=== PATIENT | male | born 1990 | race American Indian/Alaskan Native ===

== ENCOUNTER 2020-04-11 21:53 | Emergency (ER) | payer SELFPAY ==
--- NOTE | 2020-04-11 22:19 | Emergency Department Report ---
<JA REDDY - Last Filed: 04/13/20 20:41> ED Psych HPI - General Stated Complaint: SUICIDAL ATTEMPT/LACERATION LEFT WRIST Time Seen by Provider: 04/11/20 22:03 - Related Data Previous Rx's Medication Instructions Recorded Last Taken Type ARIPiprazole [Abilify TAB] 15 mg PO QDAY #30 tablet 04/16/[address] [Tanmay Dr] 250 mg PO BID #60 tablet 04/16/20 Unknown Rx Docusate Sodium [Colace] 100 mg PO BID PRN #20 capsule 04/16/20 Unknown Rx traZODone [Desyrel] 50 mg PO QHS #30 tablet 04/16/20 Unknown Rx Allergies Allergy/AdvReac Type Severity Reaction Status Date / Time No Known Allergies Allergy Verified 04/15/20 11:23 ED Past Medical Hx - Medications Home Medications: Home Medications Medication Instructions Recorded Confirmed Last Taken Type ARIPiprazole [Abilify TAB] 15 mg PO QDAY #30 tablet 04/16/[address] [Depakote Dr] 250 mg PO BID #60 tablet 04/16/20 Unknown Rx Docusate Sodium [Colace] 100 mg PO BID PRN #20 capsule 04/16/20 Unknown Rx traZODone [Desyrel] 50 mg PO QHS #30 tablet 04/16/20 Unknown Rx ED Course - Reevaluation(s) Reevaluation #1: 04/12/20 20:40 Chart is reviewed and appreciated, as are laboratory studies. Sodium of 133 is reviewed and appreciated, patient is a young gentleman without significant medical comorbidities, and he has unremarkable vital signs at this time. In addition, please note that laboratory studies do have some margin of error, and in addition, human physiology will typically allow for variation in electrolytes. Patients sodium of 133 does not represent a medical contraindication to psychiatric admission, evaluation, consultation and placement. An emergent redraw a basic metabolic panel to assess for this incidental and asymptomatic laboratory abnormality is not medically indicated/necessary at this time. ED Medical Decision Making - Lab Data Result diagrams: 04/11/20 22:26 04/12/20 05:28 ED Disposition Clinical Impression: Suicide attempt, Laceration of left wrist, Acute hypokalemia, Constipation, Acute psychosis Disposition: DC-01 TO HOME OR SELFCARE Is pt being admited?: No Does the pt Need Aspirin: No Condition: Stable Additional Instructions: Outpatient COMM[facility] Behavioral Health Resources: [facility] ([facility]) [address] [place] [address] / [phone] Sunday thru Sunday - 8am - 5pm [facility] Address: [address] [place] [address] Sunday thru Sunday- 7am-2pm [facility] Address: [address] [place] [address] Sunday thru Sunday: 8:30AM-5PM CRISIS RESOURCES [place] Crisis Line: Suicide Prevention Line: Crisis Text Line: Text START to [phone] Emergency: 911 Prescriptions: traZODone [Desyrel] 50 mg PO QHS #30 tablet ARIPiprazole [Abilify TAB] 15 mg PO QDAY #30 tablet Docusate Sodium [Colace] 100 mg PO BID PRN #20 capsule PRN Reason: Constipation Divalproex Dr [Depakote Dr] 250 mg PO BID #60 tablet Referrals: PRIMARY CARE, [Primary Care Provider] - 3-5 Days <KRISTY HARRISON - Last Filed: 04/14/20 11:36> ED Course - Reevaluation(s) Reevaluation #2: 04/14/20 11:36 I was asked by nurse to reassess patient's left wrist due to swelling. Patient cut his left wrist with a box order person on the and had a subsequently repaired in the ED. He says since the it has been swollen. It was wrapped with gauze and a wound dressing. Patient reports that since nurse removed gauze swelling has improved. He complains of pain to the wrist. Patient has full range of motion of fingers although he has pain with full extension of fingers. He has limited flexion extension of wrist secondary to pain. Generalized swelling to wrist and hand noted. Patient does have some mild bleeding from the radial side of the wound. Patient does not have any local warmth, erythema, or purulent drainage. Patient will be empirically covered with [facility] ED Medical Decision Making - Lab Data Result diagrams: 04/11/20 22:26 04/12/20 05:28 <HOLLY PAREDES - Last Filed: 04/16/20 12:32> ED Course - Reevaluation(s) Reevaluation #3: 04/16/20 12:32 Patient Name: JOAQUIN CHRISTIANSON Date of : 86 Patient Status: Emergency Emergency Provider: SKYLA DAVILA Date: 04/16/20 07:39 Initialization Date: 04/16/20 07:39 Subjective - Reason for Consult Consult date: 04/16/20 Reason for consult: MHE Requesting physician: SKYLA DAVILA - Chief Complaint Chief complaint: Psych Progress: Patient seen this a.m. report that he is doing pretty good, report decreased anxiety levels, reported he still hearing voices but is decreased in background chatter and also denies any suicidal thoughts or homicidal thoughts. Patient reported he has never been on any medication until now endorse prior history of psychedelic substance use, says he no longer want to use them anymore because he thinks they are affecting his brain and like to maintain the current medication that we have him on currently with follow-up outpatient REVIEW OF SYSTEMS Constitutional: Negative for weight loss ENT: Negative for stridor Respiratory: Negative for cough or hemoptysis All other systems reviewed and are negative MENTAL STATUS EXAMINATION General Appearance and Behavior: Age appropriate, wearing appropriate clothes, staring, calm and cooperative Mood: "okay" Affect and affective range: congruent with mood Thought Process: responding to internal stimuli Thought Content: Hallucinations Speech: Normal volume, Regular rate and rhythm Suicidal Ideation: Denies Homicidal Ideation: Denies Hallucinations: Yes Delusions: None elicited Impulse Control: normal Insight and Judgment: Limited Memory/Cognition: Normal Attention: Normal Orientation: Alert, oriented Assessment Schizoaffective Disorder Treatment Plan MEDICATIONS: Risks, benefits and alternatives of medications discussed with the patient, questions answered and consent obtained from patient. PSYCHOTHERAPY: Supportive psychotherapy provided MEDICAL: Per primary team DELIRIUM PRECAUTIONS: Please re-orient patient frequently, keep lights on during the day, and minimize benzodiazepines and opiates as these medications could wo rsen patient's confusion. SPINNER FRAME: DISPOSITION: Do Not Recommend acute inpatient psychiatric hospitalization at this time LEGAL STATUS: 1013 rescinded FOLLOW-UP: Will sign off Thank you for the consult. Please contact with any questions and/or concerns. Reevaluation #4: 04/16/20 12:32 Patient states he is feeling much improved. He is never been on medications for schizophrenia and appears to have been stabilized. Patient to be discharged. Patient had his 1013 rescinded by mental health colleagues. ED Medical Decision Making - Lab Data Result diagrams: 04/11/20 22:26 04/12/20 05:28 ED Disposition Is pt being admited?: No Does the pt Need Aspirin: No Time of Disposition: 12:34 <SKYLA DAVILA - Last Filed: 04/17/20 08:16> ED Psych HPI - General Source: patient, EMS - History of Present Illness Initial Comments: Mr. Christianson is a 29 years old male with no significant past medical or psychiatric history. Patient brought to the emergency room via EMS from his workplace after his coworker called and stated that he try to kill himself. Patient works in a liquor store. Patient went to the bathroom and cut his left wrist open with a deep laceration. Patient stated that he is hearing voices telling him that he has a low self-esteem and he is a bad person and he need to kill himself. Complaint: suicidal ideation, feels depressed Associated Psychiatric Symptoms: depression, suicidal ideation, auditory hallucinations Quality: constant If Self Harm: admits thoughts of, has plan, has acted on plan, self-inflicted trauma ED Review of Systems ROS: Stated complaint: SUICIDAL ATTEMPT/LACERATION LEFT WRIST Other details as noted in HPI Comment: All other systems reviewed and negative Constitutional: denies: chills, fever Respiratory: denies: cough, shortness of breath, SOB with exertion Cardiovascular: denies: chest pain Gastrointestinal: denies: abdominal pain, nausea, vomiting Musculoskeletal: denies: back pain Neurological: denies: headache, weakness ED Physical Exam - General General appearance: alert, other (depressed) - Head Head exam: Present: atraumatic, normocephalic, normal inspection - Eye Eye exam: Present: normal appearance - ENT ENT exam: Present: normal exam, normal orophraynx, mucous membranes moist - Neck Neck exam: Present: normal inspection, full ROM. Absent: tenderness, menin gismus - Respiratory Respiratory exam: Present: normal lung sounds bilaterally - Cardiovascular Cardiovascular Exam: Present: regular rate, normal rhythm, normal heart sounds - GI/Abdominal GI/Abdominal exam: Present: soft, normal bowel sounds. Absent: distended, tenderness, guarding, rebound, rigid, organomegaly, mass, bruit, pulsatile mass, hernia - Extremities Exam Extremities exam: Present: full ROM, normal capillary refill. Absent: t enderness, pedal edema, joint swelling, calf tenderness - Back Exam Back exam: Present: normal inspection, full ROM. Absent: CVA tenderness (R), CVA tenderness (L) - Neurological Exam Neurological exam: Present: alert, oriented X3, CN II-XII intact - Psychiatric Psychiatric exam: Present: depressed, suicidal ideation. Absent: homicidal ideation - Skin Skin exam: Present: warm, dry, other (Laceration to the left wrist.) ED Course Vital Signs 04/11/20 04/12/20 04/12/20 22:44 02:22 08:22 Temperature 98.2 F 98.2 F 97.8 F Pulse Rate 81 91 H 124 H Respiratory 19 18 17 Rate Blood Pressure Blood Pressure 165/96 156/85 112/77 [Left] O2 Sat by Pulse 100 100 98 Oximetry 04/12/20 04/12/20 04/13/20 17:56 19:56 02:35 Temperature 97.9 F 98.7 F 97.7 F Pulse Rate 75 79 72 Respiratory 16 16 16 Rate Blood Pressure 136/88 124/79 Blood Pressure 136/84 [Left] O2 Sat by Pulse 100 99 100 Oximetry 04/13/20 04/13/20 04/13/20 08:29 08:32 20:00 Temperature 98.1 F 98.8 F Pulse Rate 72 84 Respiratory 16 16 17 Rate Blood Pressure Blood Pressure 133/91 128/75 [Left] O2 Sat by Pulse 100 100 97 Oximetry 04/14/20 04/14/20 04/15/20 19:19 20:00 07:35 Temperature 98.5 F Pulse Rate 77 Respiratory 18 18 18 Rate Blood Pressure 144/85 Blood Pressure [Left] O2 Sat by Pulse 100 100 100 Oximetry 04/15/20 04/15/20 04/15/20 08:54 19:10 20:02 Temperature 97.9 F 98.6 F Pulse Rate 86 89 Respiratory 18 18 18 Rate Blood Pressure Blood Pressure 144/90 154/94 [Left] O2 Sat by Pulse 100 99 100 Oximetry 04/16/20 04/16/20 01:51 08:22 Temperature 97.6 F 97.9 F Pulse Rate 65 75 Respiratory 16 20 Rate Blood Pressure Blood Pressure 124/73 141/89 [Left] O2 Sat by Pulse 98 100 Oximetry - Laceration /Wound Repair Left Wrist Wound Location: upper extremity Wound Explored: no foreign body removed Irrigated w/ Saline (ccs): 50 Betadine Prep?: Yes Anesthesia: 1% Lidocaine Suture Size/Type: 4:0, 3:0 Deep Layer Suture Size/Type: 4:0, gut Sterile Dressing Applied?: Yes ED Medical Decision Making - Lab Data Result diagrams: 04/11/20 22:26 04/12/20 05:28 Critical care attestation.: If time is entered above; I have spent that time in minutes in the direct care of this critically ill patient, excluding procedure time.
[2020-04-11 22:35] LABS: Bilirubin,Urine NEG (Negative); Blood,Urine SM (Negative); Color,Urine Amber (Yellow); Hyaline Casts,Urine 1 /LPF; Mucus,Urine FEW /HPF; Protein,Urine <15 mg/dL mg/dL (Negative)
[2020-04-11] MEDS ORDERED: LIDOCAINE (2%) 20 MG/1 ML VIAL 20 ML MDV INFILTRATI ONE (22:35)
[2020-04-11] MEDS ORDERED: SODIUM CHLORIDE IRRI 500 ML 500 ML IR ONE (22:35)
[2020-04-11 22:41] LABS: Amphetamine Screen,Urine PRESUMPTIVE NEGATIVE; Benzodiazepines Screen,Urine PRESUMPTIVE NEGATIVE; Cannabinoid Screen,Urine PRESUMPTIVE NEGATIVE; Cocaine Screen,Urine PRESUMPTIVE NEGATIVE; Methadone Screen,Urine PRESUMPTIVE NEGATIVE; Opiate Screen,Urine PRESUMPTIVE NEGATIVE
[2020-04-11 22:45] LABS: Basophils # (Auto) 0.1 K/mm3 (0.0-0.1); Hematocrit 41.5 % (35.5-45.6); Hemoglobin 14.2 gm/dl (11.8-15.2); Lymphocytes # (Auto) 1.6 K/mm3 (1.2-5.4); Lymphocytes % (Auto) 18.4 % (13.4-35.0); Mean Corpuscular HGB Conc 34 % (32-34); Mean Corpuscular Volume 97 fl (84-94); Monocytes # (Auto) 0.9 K/mm3 (0.0-0.8); Monocytes % (Auto) 10.3 % (0.0-7.3); Platelet Count 192 K/mm3 (140-440); Red Blood Count 4.29 M/mm3 (3.65-5.03); Red Cell Distribution Width 13.4 % (13.2-15.2)
[2020-04-11 23:00] LABS: BUN/Creatinine Ratio 9
[2020-04-11 23:03] LABS: Alanine Aminotransferase 22 units/L (7-56); Albumin 4.9 g/dL (3.9-5)
[2020-04-11 23:19] LABS: Bilirubin,Direct < 0.2 mg/dL (0-0.2)
[2020-04-11 23:25] LABS: Blood Urea Nitrogen 8 mg/dL (9-20); Calcium 9.3 mg/dL (8.4-10.2); Hemolysis Index 12
[2020-04-11] MEDS ORDERED: SODIUM CHLORIDE 0.9% 1000 ML 1,000 ML IV ONE (23:46)
[2020-04-11] MEDS ORDERED: POTASSIUM CHLORIDE ER 20 MEQ TAB PO ONE (23:54)
[2020-04-11] MEDS: POTASSIUM CHLORIDE 10 MEQ 10 MEQ/100 ML BAG IV SCH (23:57)
[2020-04-12] MEDS ORDERED: SODIUM CHLORIDE 0.9% IRR 500 ML BOTTLE IR ONE (00:11)
[2020-04-12] MEDS ORDERED: LIDOCAINE (2%) 20 MG/1 ML VIAL 20 ML MDV INFILTRATI ONE (00:11)
[2020-04-12] MEDS: POTASSIUM CHLORIDE 10 MEQ 10 MEQ/100 ML BAG IV SCH (01:02)
[2020-04-12] MEDS ORDERED: LORazepam 1 MG TAB PO ONE (01:16)
[2020-04-12] MEDS ORDERED: TETANUS,DIPHTHERIA TOXOID ADULT 0.5 ML INJ IM ONE (05:52)
[2020-04-12] MEDS ORDERED: DIPHtheria,PERTUSSIS(ACELL),TETANUS VACCINE/PF 0.5 ML VIAL IM ONE (06:00)
[2020-04-12] MEDS ORDERED: diphenhydrAMINE 25 MG CAP PO PRN (20:14)
--- NOTE | 2020-04-13 10:01 | Consultation ---
History of Present Illness - Reason for Consult Consult date: 04/13/20 Reason for consult: suicidal attempt - History of Present Psychiatric Illness Bk Snider is a 29y/o male patient who was brought to the ER after a coworker found him in the bathroom after cutting his wrist. During my interview with the patient, he is lying in bed. He is awake. He is oriented x 3. The patient appears to be responding to internal stimuli. He is staring intensely. He is speaking in a low tone. The patient says "the voices told me to cut myself." He raises his left wrist up to show me. He then says "I hear them in the distance but I don't know what they are saying right now." When asked about feelings of self harm at present, the patient says "I don't know." He denies any psych diagnoses but states he had a suicide attempt in the past by placing a plastic bag over his head. He also denies any illicit drug use recently, but says he's done "ecstasy awhile ago." The patient describes his mood as "detached." PAST PSYCHIATRIC HISTORY Diagnoses: Denies Suicide attempts or Self-harm behavior: once Prior psychiatric hospitalizations: Denies Substance Abuse history: Denies Previous psychiatric medications tried: Denies Outpatient treatment: Denies PAST MEDICAL HISTORY: None reported Family Psychiatric History: None reported or documented SOCIAL HISTORY Marital Status: Single Living Arrangements: "with someone" Employment Status: Employed Access to guns/weapons: Denies Education: Some college History of Abuse: Denies Legal History: Denies EVIEW OF SYSTEMS Constitutional: Negative for weight loss ENT: Negative for stridor Respiratory: Negative for cough or hemoptysis All other systems reviewed and are negative MENTAL STATUS EXAMINATION General Appearance and Behavior: Age appropriate, wearing appropriate clothes, staring, calm and cooperative Mood: "detached" Affect and affective range: congruent with mood Thought Process: responding to internal stimuli Thought Content: Hallucinations Speech: Normal volume, Regular rate and rhythm Suicidal Ideation: Denies Homicidal Ideation: Denies Hallucinations: Yes Delusions: None elicited Impulse Control: normal Insight and Judgment: Limited Memory/Cognition: Normal Attention: Normal Orientation: Alert, oriented Assessment Schizoaffective Disorder Plan Start Abilify 5mg po daily Start Depakote DR 125mg po BID Start Trazodone 50mg po qhs Sitter: Defer to primary Medical: Per primary Disposition: Recommend acute inpatient treatment Will follow. Thank you for this consult. Medications and Allergies Allergies Allergy/AdvReac Type Severity Reaction Status Date / Time No Known Allergies Allergy Verified 04/11/20 22:36 Active Meds: Active Medications Diphenhydramine HCl (Benadryl) 50 mg PO QHS PRN PRN Reason: Insomnia Last Admin: 04/12/20 21:52 Dose: 50 mg Documented by: Mental Status Exam - Vital signs Last Vital Signs Temp 98.1 F 04/13/20 08:29 Pulse 72 04/13/20 08:29 Resp 16 04/13/20 08:32 BP 133/91 04/13/20 08:29 Pulse Ox 100 04/13/20 08:32 Results Result Diagrams: 04/11/20 22:26 04/12/20 05:28 All other labs normal.
[2020-04-13] MEDS: ARIPiprazole 5 MG TAB PO SCH (11:30)
[2020-04-13] MEDS: DIVALPROEX DR 125 MG TAB PO SCH ×2 (11:30→22:24)
[2020-04-13] MEDS: traZODone 50 MG TAB PO SCH (22:24)
[2020-04-14] MEDS: DIVALPROEX DR 125 MG TAB PO SCH (10:23)
[2020-04-14] MEDS: ARIPiprazole 5 MG TAB PO SCH (10:23)
--- NOTE | 2020-04-14 12:16 | Progress Note ---
Subjective - Reason for Consult Consult date: 04/14/20 Reason for consult: suicide attempt - Chief Complaint Chief complaint: During my interview with the patient today, he is a/o x 3. The patient says he feels "alright today." He is responding to internal stimuli. He verbalizes "hearing chatter in the distance." When asking the patient about suicidal thoughts, he says "not suicidal, but mostly feeling like I have dunn.' He then says, "pro creative dunn." REVIEW OF SYSTEMS Constitutional: Negative for weight loss ENT: Negative for stridor Respiratory: Negative for cough or hemoptysis All other systems reviewed and are negative MENTAL STATUS EXAMINATION General Appearance and Behavior: Age appropriate, wearing appropriate clothes, staring, calm and cooperative Mood: "alright" Affect and affective range: congruent with mood Thought Process: responding to internal stimuli Thought Content: Hallucinations Speech: Normal volume, Regular rate and rhythm Suicidal Ideation: Denies Homicidal Ideation: Denies Hallucinations: Yes Delusions: None elicited Impulse Control: normal Insight and Judgment: Limited Memory/Cognition: Normal Attention: Normal Orientation: Alert, oriented Assessment Schizoaffective Disorder Plan Increase Abilify 10mg po daily Increase Depakote DR 250mg po BID Sitter: Defer to primary Medical: Per primary Disposition: Recommend acute inpatient treatment Will follow. Thank you for this consult. Mental Status Exam - Vital signs Last Vital Signs Temp 98.8 F 04/13/20 20:00 Pulse 84 04/13/20 20:00 Resp 17 04/13/20 20:00 BP 128/75 04/13/20 20:00 Pulse Ox 97 04/13/20 20:00
[2020-04-14] MEDS: cephALEXin 500 MG CAP PO SCH ×3 (14:15→22:34)
[2020-04-14] MEDS: traZODone 50 MG TAB PO SCH (22:34)
[2020-04-14] MEDS: DIVALPROEX DR 250 MG TAB PO SCH (22:35)
[2020-04-15] MEDS: DIVALPROEX DR 250 MG TAB PO SCH ×2 (09:33→23:46)
[2020-04-15] MEDS: cephALEXin 500 MG CAP PO SCH ×4 (09:34→23:46)
[2020-04-15] MEDS ORDERED: ARIPiprazole 10 MG TAB PO SCH (10:00)
--- NOTE | 2020-04-15 10:08 | Progress Note ---
Subjective - Reason for Consult Consult date: 04/15/20 Reason for consult: suicidal attempts - Chief Complaint Chief complaint: During my interview with the patient today, he is a/o x 3. The patient says he feels "okay." He is staring intensely. He initially denies hallucinations, but then states, "it's not voices but high pitch ringing." When asked about SI/HI, the patient stares at me and says, "no, it's just pro-creative power." When asking the patient what he meant by that, he said "I'm not sure. That's what I was told it was." REVIEW OF SYSTEMS Constitutional: Negative for weight loss ENT: Negative for stridor Respiratory: Negative for cough or hemoptysis All other systems reviewed and are negative MENTAL STATUS EXAMINATION General Appearance and Behavior: Age appropriate, wearing appropriate clothes, staring, calm and cooperative Mood: "okay" Affect and affective range: congruent with mood Thought Process: responding to internal stimuli Thought Content: Hallucinations Speech: Normal volume, Regular rate and rhythm Suicidal Ideation: Denies Homicidal Ideation: Denies Hallucinations: Yes Delusions: None elicited Impulse Control: normal Insight and Judgment: Limited Memory/Cognition: Normal Attention: Normal Orientation: Alert, oriented Assessment Schizoaffective Disorder Plan Increase Abilify 15mg po daily Sitter: Defer to primary Medical: Per primary Disposition: Recommend acute inpatient treatment Will follow. Thank you for this consult. Mental Status Exam - Vital signs Last Vital Signs Temp 97.9 F 04/15/20 08:54 Pulse 86 04/15/20 08:54 Resp 18 04/15/20 08:54 BP 144/90 04/15/20 08:54 Pulse Ox 100 04/15/20 08:54
[2020-04-15] MEDS ORDERED: traZODone 100 MG TAB PO ONE (23:18)
[2020-04-15] MEDS: traZODone 50 MG TAB PO SCH (23:45)
--- NOTE | 2020-04-16 07:40 | Progress Note ---
Subjective - Reason for Consult Consult date: 04/16/20 Reason for consult: MHE Requesting physician: SKYLA DAVILA - Chief Complaint Chief complaint: Psych Progress: Patient seen this a.m. report that he is doing pretty good, report decreased anxiety levels, reported he still hearing voices but is decreased in background chatter and also denies any suicidal thoughts or homicidal thoughts. Patient reported he has never been on any medication until now endorse prior history of psychedelic substance use, says he no longer want to use them anymore because he thinks they are affecting his brain and like to maintain the current medication that we have him on currently with follow-up outpatient REVIEW OF SYSTEMS Constitutional: Negative for weight loss ENT: Negative for stridor Respiratory: Negative for cough or hemoptysis All other systems reviewed and are negative MENTAL STATUS EXAMINATION General Appearance and Behavior: Age appropriate, wearing appropriate clothes, staring, calm and cooperative Mood: "okay" Affect and affective range: congruent with mood Thought Process: responding to internal stimuli Thought Content: Hallucinations Speech: Normal volume, Regular rate and rhythm Suicidal Ideation: Denies Homicidal Ideation: Denies Hallucinations: Yes Delusions: None elicited Impulse Control: normal Insight and Judgment: Limited Memory/Cognition: Normal Attention: Normal Orientation: Alert, oriented Assessment Schizoaffective Disorder Treatment Plan MEDICATIONS: Risks, benefits and alternatives of medications discussed with the patient, questions answered and consent obtained from patient. PSYCHOTHERAPY: Supportive psychotherapy provided MEDICAL: Per primary team DELIRIUM PRECAUTIONS: Please re-orient patient frequently, keep lights on during the day, and minimize benzodiazepines and opiates as these medications could worsen patient's confusion. DEFENSE ATTORNEY: DISPOSITION: Do Not Recommend acute inpatient psychiatric hospitalization at this time LEGAL STATUS: 1013 rescinded FOLLOW-UP: Will sign off Thank you for the consult. Please contact with any questions and/or concerns. Mental Status Exam - Vital signs Last Vital Signs Temp 97.6 F 04/16/20 01:51 Pulse 65 04/16/20 01:51 Resp 16 04/16/20 01:51 BP 124/73 04/16/20 01:51 Pulse Ox 98 04/16/20 01:51
[2020-04-16 08:23] VITALS: BP 141/89
[2020-04-16] MEDS ORDERED: ARIPiprazole 15 MG TAB PO SCH (10:00)
[2020-04-16] MEDS: DIVALPROEX DR 250 MG TAB PO SCH (10:48)
[2020-04-16] MEDS: cephALEXin 500 MG CAP PO SCH (10:49)
== END 2020-04-16 13:10 | disposition home or self-care (01) ==
LOC: ED 21:53
DX: S61.512A Laceration without foreign body of left wrist, initial encounter (principal); E87.6 Hypokalemia; F23 Brief psychotic disorder; K59.00 Constipation, unspecified; F25.8 Other schizoaffective disorders; X58.XXXA Exposure to other specified factors, initial encounter; Y93.89 Activity, other specified; Y92.89 Other specified places as the place of occurrence of the external cause; Y99.8 Other external cause status
CPT/HCPCS: 12032; 36415; 80048; 80076; 80307; 81001; 84132; 85025; 90471; 90715; 96365; 96366; 99284; J3480; J7030; 80320; G0480

== ENCOUNTER 2020-04-25 19:28 | Emergency (ER) | payer SELFPAY ==
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
[2020-04-26 04:45] VITALS: BP 131/81
== END 2020-04-25 21:00 | disposition home or self-care (01) ==
LOC: ED 19:28
DX: S61.512A Laceration without foreign body of left wrist, initial encounter (principal); T81.30XA Disruption of wound, unspecified, initial encounter; I10 Essential (primary) hypertension; F17.200 Nicotine dependence, unspecified, uncomplicated; F14.90 Cocaine use, unspecified, uncomplicated; Z98.890 Other specified postprocedural states; Z79.899 Other long term (current) drug therapy; X58.XXXA Exposure to other specified factors, initial encounter; Y93.89 Activity, other specified; Y92.89 Other specified places as the place of occurrence of the external cause; Y99.8 Other external cause status
CPT/HCPCS: 99282